=== PATIENT | male | born 1970 | race Caucasian/White ===

== ENCOUNTER 2017-02-16 19:55 | Emergency (ER) | payer SELFPAY ==
[2017-02-16] MEDS ORDERED: ACETAMINOPHEN 325 MG TABLET PO ONE (20:53)
[2017-02-16] MEDS ORDERED: BENZONATATE 100 MG CAPSULE PO ONE (23:40)
[2017-02-16] MEDS ORDERED: DOXYCYCLINE HYCLATE 100 MG TABLET PO ONE (23:40)
--- NOTE | 2017-02-16 23:41 | ER Document Report ---
ED Flu Like - General Chief Complaint: Fever, cough, weak, Throat Stated Complaint: FEVER/WEAKNESS Time Seen by Provider: 02/16/17 23:29 Notes: Patient is a 46-year-old male without past medical history, current every day smoker who presents with 2 days of fever, cough with production of phlegm and generalized weakness. Denies any history of similar symptoms in the past. States she's been trying [id number] medications with minimal improvement of his symptoms. He does not have a primary care doctor. Denies any associated shortness of breath, headache, neck pain, vomiting, diarrhea or abdominal pain. He does complain of back and lower rib pain which he states is secondary to him having severe coughing spells. Does describe that pain as a mild, aching, dull pain. TRAVEL OUTSIDE OF THE [place] IN LAST 30 DAYS: No - Related Data Allergies/Adverse Reactions: No Known Allergies Allergy (Unverified 05/29/12 11:34) Past Medical History - General Information source: Patient - Social History Smoking Status: Current Every Day Smoker Frequency of alcohol use: None Drug Abuse: None Lives with: Spouse/Significant other Family History: Reviewed & Not Pertinent Renal/ Medical History: Denies: Hx Peritoneal Dialysis Musculoskeltal Medical History: Reports Hx Gout, Reports Hx Musculoskeletal Trauma Past Surgical History: Reports: Hx Orthopedic Surgery Review of Systems - Review of Systems Notes: Constitutional: Positive for fever. HENT: Negative for sore throat. Eyes: Negative for visual changes. Cardiovascular: Negative for chest pain. Respiratory: Negative for shortness of breath. Positive for cough Gastrointestinal: Negative for abdominal pain, vomiting or diarrhea. Genitourinary: Negative for dysuria. Musculoskeletal: Negative for back pain. Skin: Negative for rash. Neurological: Negative for headaches, weakness or numbness. 10 point ROS negative except as marked above and in HPI. Physical Exam - Vital signs Vitals: Temp Pulse Resp BP Pulse Ox 102.2 F H 91 18 151/90 H 97 02/16/17 20:50 02/16/17 20:50 02/16/17 20:50 02/16/17 20:50 02/16/17 20:50 Interpretation: Hypertensive, Febrile Notes: PHYSICAL EXAMINATION: GENERAL: Well-appearing, well-nourished and in no acute distress. HEAD: Atraumatic, normocephalic. EYES: Pupils equal round and reactive to light, extraocular movements intact, sclera anicteric, conjunctiva are normal. ENT: nares patent, oropharynx clear without exudates. Moderately dry mucous membranes. NECK: Normal range of motion, supple without lymphadenopathy LUNGS: Mildly diminished breath sounds at the right base. No wheezes rales or rhonchi. HEART: Regular rate and rhythm without murmurs ABDOMEN: Soft, nontender, normoactive bowel sounds. No guarding, no rebound. No masses appreciated. EXTREMITIES: Normal range of motion, no pitting or edema. No cyanosis. NEUROLOGICAL: No focal neurological deficits. Moves all extremities spontaneously and on command. PSYCH: Normal mood, normal affect. SKIN: Warm, Dry, normal turgor, no rashes or lesions noted. Course - Re-evaluation Re-evalutation: 02/16/17 23:40 Presentation is most consistent with a viral upper respiratory infection. Patient is overall well appearance, vitals within normal limits with the exception of a fever, well-hydrated. Patient denies any headache, neck pain, and has no evidence of meningismus on examination. No evidence of respiratory distress. Based on clinical exam and history I do not suspect meningitis, strep pharyngitis, or an acute encephalitis. However, he diminished at the right base and given his history of a true fever recorded here in the emergency department will obtain a chest x-ray. Will treat patient with doxycycline given this exam finding and his recorded fever. At this time will discharge with return precautions and follow-up recommendations. Verbal discharge instructions given a the bedside and opportunity for questions given. Medication warnings reviewed. Patient is in agreement with this plan and has verbalized understanding of return precautions and the need for primary care follow-up in the next 24-72 hours. - Vital Signs Vital signs: Temp Pulse Resp BP Pulse Ox 99.1 F 77 18 152/93 H 94 02/17/17 01:00 02/17/17 01:00 02/17/17 01:00 02/17/17 01:00 02/17/17 01:00 - Diagnostic Test Radiology reviewed: Image reviewed, Reports reviewed Radiology results interpreted by me: 02/17/17 00:51 Chest x-ray: Hazy opacity above the level of the diaphragm on the right lower Discharge - Discharge Clinical Impression: Pneumonia Qualifiers: Pneumonia type: due to unspecified organism Laterality: right Lung location: lower lobe of lung Qualified Code(s): J18.1 - Lobar pneumonia, unspecified organism Condition: Good Disposition: HOME, SELF-CARE Additional Instructions: You have been diagnosed with a pneumonia. It is very important that you take all of your antibiotics until they are gone even if you are feeling better. Please return to the emergency department immediately if you began having worsening shortness of breath, become confused, have worsening pain, pass out, have persistent vomiting that prevents you from being able to drink fluids for more than 12 hours, or have any other symptoms that are worrisome to you. Please follow-up with your primary care doctor in the next 1-2 days. Prescriptions: Doxycycline Hyclate 100 mg PO BID #14 capsule
[2017-02-17 01:52] VITALS: BP 152/93
== END 2017-02-17 01:05 | disposition home or self-care (01) ==
LOC: ER 19:55
DX: J18.1 Lobar pneumonia, unspecified organism (principal); R50.9 Fever, unspecified; R53.1 Weakness; F17.200 Nicotine dependence, unspecified, uncomplicated
CPT/HCPCS: 71010; 99283

== ENCOUNTER 2017-12-16 10:49 | Emergency (ER) | payer SELFPAY ==
--- NOTE | 2017-12-16 11:54 | ER Document Report ---
ED Extremity Problem, Lower - General Chief Complaint: Ankle Pain Stated Complaint: ANKLE PAIN Time Seen by Provider: 12/16/17 11:41 Notes: Patient is a 47-year-old male with history of gout and hypertension complaining of pain to his posterior left ankle 3 days. The area is swollen. Painful with foot flexion. Patient has a history of gout but this pain is not familiar. Patient denies any trauma to the area. No fever. No chest pain or shortness of breath TRAVEL OUTSIDE OF THE [place] IN LAST 30 DAYS: No - HPI Patient complains to provider of: Pain Location: Ankle Occurred: Other - 3 days Quality of pain: Achy Recent injury: No Exacerbated by: Walking Relieved by: Nothing - Related Data Allergies/Adverse Reactions: No Known Allergies Allergy (Verified 12/16/17 10:51) Past Medical History - General Information source: Patient - Social History Smoking Status: Current Every Day Smoker Frequency of alcohol use: None Drug Abuse: None Occupation: Operations Coordinator Lives with: Family Family History: Reviewed & Not Pertinent Renal/ Medical History: Denies: Hx Peritoneal Dialysis Musculoskeltal Medical History: Reports Hx Gout, Reports Hx Musculoskeletal Trauma Past Surgical History: Reports: Hx Orthopedic Surgery Review of Systems - Review of Systems Constitutional: No symptoms reported EENT: No symptoms reported Cardiovascular: No symptoms reported Respiratory: No symptoms reported Gastrointestinal: No symptoms reported Genitourinary: No symptoms reported Male Genitourinary: No symptoms reported Musculoskeletal: See HPI Skin: No symptoms reported Hematologic/Lymphatic: No symptoms reported Neurological/Psychological: No symptoms reported Physical Exam - Vital signs Vitals: Temp Pulse Resp BP Pulse Ox 97.8 F 77 16 166/107 H 97 12/16/17 11:12 12/16/17 11:12 12/16/17 11:12 12/16/17 11:12 12/16/17 11:12 Interpretation: Normal - General General appearance: Appears well, Alert - HEENT Head: Normocephalic, Atraumatic Eyes: Normal Pupils: PERRL - Respiratory Respiratory status: No respiratory distress Chest status: Nontender Breath sounds: Normal Chest palpation: Normal - Cardiovascular Rhythm: Regular Heart sounds: Normal auscultation Murmur: No - Abdominal Inspection: Normal Distension: No distension Bowel sounds: Normal Tenderness: Nontender Organomegaly: No organomegaly - Back Back: Normal, Nontender - Extremities General upper extremity: Normal inspection, Nontender, Normal color, Normal ROM , Normal temperature Ankle: Tender - Tenderness at the insertion of the left Achilles tendon just above posterior calcaneus. Mild soft tissue swelling in this area. No erythema or warmth. No tenderness to malleolus or calcaneus. Able to flex foot without any difficulty. Foot: Normal - Left foot is warm to touch. Strong pedal pulse. - Neurological Neuro grossly intact: Yes Cognition: Normal Orientation: AAOx4 Diana Coma Scale Eye Opening: Spontaneous [place] Coma Scale Verbal: Oriented [place] Coma Scale Motor: Obeys Commands Diana Coma Scale Total: 15 Speech: Normal Motor strength normal: LUE, RUE, LLE, RLE Sensory: Normal - Psychological Associated symptoms: Normal affect, Normal mood - Skin Skin Temperature: Warm Skin Moisture: Dry Skin Color: Normal Course - Re-evaluation Re-evalutation: 12/16/17 20:38 History and physical most consistent with a tendinopathy. No vascular compromise. Low suspicion for tendon rupture. Will treat with course of oral steroids for inflammation. Home care, primary or orthopedic follow-up and return ED precautions discussed with patient. Patient agreeable with plan and stable with discharge Patient's blood pressure noted to be elevated. Patient is aware and reports that his blood pressure is usually elevated when he comes to the doctor. He also reports increased stress due to his mother being recently hospitalized. I discussed lifestyle modifications such as smoking cessation, limiting caffeine and sodium intake and weight loss. Patient is asymptomatic with this hypertension. I encouraged patient to keep a blood pressure diary and to follow -up with his primary care for further evaluation if his blood pressure remains consistently elevated greater than 140/90 - Vital Signs Vital signs: Temp Pulse Resp BP Pulse Ox 97.6 F 73 18 157/103 H 98 12/16/17 12:06 12/16/17 12:06 12/16/17 12:06 12/16/17 12:06 12/16/17 12:06 Discharge - Discharge Clinical Impression: Acute right ankle pain, Right Achilles tendinitis, Elevated blood pressure reading Condition: Stable Disposition: HOME, SELF-CARE Instructions: Ice & Elevation ([facility]), Steroid Medication, Tendonitis ([facility]), Ultram ([facility]) Additional Instructions: Your pain is most likely caused from inflammation around the Achilles tendon Take the prescription steroid medication as prescribed to help with this inflammation Take the prescription pain medication as needed for more severe pain I recommend an Ezekiel wrap or some type of ankle compression for support and comfort Ice and elevate the ankle and possible Your blood pressure is noted to be elevated today I recommend you keep a blood pressure diary and follow-up with your primary care if the readings remain elevated I recommend lifestyle modifications to help with blood pressure control such as stop smoking, decrease your caffeine intake and limit your sodium intake to less than 2000 mg per day Prescriptions: Prednisone [Deltasone 10 mg Tablet] 20 mg PO BID #20 tablet Tramadol HCl [Ultram 50 mg Tablet] 50 mg PO ASDIR PRN #20 tablet PRN Reason: Forms: Elevated Blood Pressure
[2017-12-16 12:10] VITALS: BP 157/103
== END 2017-12-16 12:09 | disposition home or self-care (01) ==
LOC: ER 10:49
DX: M25.572 Pain in left ankle and joints of left foot (principal); M76.61 Achilles tendinitis, right leg; R03.0 Elevated blood-pressure reading, without diagnosis of hypertension; F17.200 Nicotine dependence, unspecified, uncomplicated
CPT/HCPCS: 99283

== ENCOUNTER 2018-06-29 17:16 | Emergency (ER) | payer SELFPAY ==
[2018-06-29] MEDS ORDERED: ACETAMINOPHEN 325 MG TABLET PO ONE (17:39)
[2018-06-29] MEDS ORDERED: PREDNISONE 20 MG TABLET PO ONE (17:39)
[2018-06-29] MEDS ORDERED: CLONIDINE HCL 0.1 MG TABLET PO ONE (17:45)
--- NOTE | 2018-06-29 17:48 | ER Document Report ---
HPI - HPI Patient complains to provider of: Gout flare Onset: Yesterday Onset/Duration: Gradual Quality of pain: Achy Pain Level: 3 Context: Patient presents complaining of left great toe pain. Patient states he has a history of gout and suspects the same. Patient denies any injury. Patient denies any fever. Patient does present with elevated blood pressure. Patient states that he has been told on multiple occasions that he had a high blood pressure although patient does not see a primary doctor and does not take medications. Patient denies any headache chest pain back pain or visual disturbances at this time. Associated Symptoms: Other - Left great toe pain. denies: Headache Exacerbated by: Standing, Movement, Walking Relieved by: Denies Similar symptoms previously: Yes Recently seen / treated by doctor: No - ROS ROS below otherwise negative: Yes Systems Reviewed and Negative: Yes All other systems reviewed and negative - CONSTITUTIONAL Constitutional: DENIES: Fever - NEURO Neurology: DENIES: Headache - CARDIOVASCULAR Cardiovascular: DENIES: Chest pain - RESPIRATORY Respiratory: DENIES: Trouble Breathing, Coughing - GASTROINTESTINAL Gastrointestinal: DENIES: Abdominal Pain - MUSCULOSKELETAL Musculoskeletal: REPORTS: Extremity pain - Left great toe. DENIES: Back Pain - DERM Skin Color: Normal Skin Problems: None Past Medical History - General Information source: Patient - Social History Smoking Status: Current Every Day Smoker Smoking Education Provided: Yes Frequency of alcohol use: None Drug Abuse: None Occupation: sprinkler truck driver Lives with: Family Family History: Reviewed & Not Pertinent - Past Medical History Cardiac Medical History: Reports: Hx Hypertension Renal/ Medical History: Denies: Hx Peritoneal Dialysis Musculoskeletal Medical History: Reports Hx Gout, Reports Hx Musculoskeletal Trauma Past Surgical History: Reports: Hx Orthopedic Surgery Vertical Provider Document - CONSTITUTIONAL Agree With Documented VS: Yes Exam Limitations: No Limitations General Appearance: WD/WN, No Apparent Distress - INFECTION CONTROL TRAVEL OUTSIDE OF THE [place] IN LAST 30 DAYS: No - HEENT HEENT: Atraumatic, Normocephalic - NECK Neck: Normal Inspection, Supple. negative: Lymphadenopathy-Left, Lymphadenopathy-Right - RESPIRATORY Respiratory: Breath Sounds Normal, No Respiratory Distress - CARDIOVASCULAR Cardiovascular: Regular Rate, Regular Rhythm, No Murmur - BACK Back: Normal Inspection - MUSCULOSKELETAL/EXTREMETIES Musculoskeletal/Extremeties: MAEW, Tender - left great toe tenderness, swelling , Edema - NEURO Level of Consciousness: Awake, Alert, Appropriate Motor/Sensory: No Motor Deficit - DERM Integumentary: Warm, Dry, No Rash Course - Re-evaluation Re-evalutation: 06/29/18 18:37 Patient advised of elevated creatinine test and importance of monitoring as well as treating his hypertension. Patient encouraged to follow-up with a primary doctor for further management of both his gout and his hypertension. Patient without any objective fever, no concern for cellulitis, septic arthritis or trauma at this time. - Laboratory Result Diagrams: 06/29/18 17:50 Discharge - Discharge Clinical Impression: Abnormal renal function test Gout Qualifiers: Gout site: toe Gout etiology: unspecified cause Chronicity: acute Laterality: left Qualified Code(s): M10.9 - Gout, unspecified Hypertension Qualifiers: Hypertension type: unspecified Qualified Code(s): I10 - Essential (primary) hypertension Condition: Stable Disposition: HOME, SELF-CARE Instructions: Gout ([facility]), Gout Diet ([facility]), High Blood Pressure, Requiring Treatment ([facility]) Additional Instructions: Return immediately for any new or worsening symptoms Followup with your primary care provider, call tomorrow to make a followup appointment Monitor blood pressure daily prior to taking your medication, keep a log and present to primary doctor for further management Prescriptions: Lisinopril 10 mg PO DAILY #30 tablet Oxycodone HCl/Acetaminophen [Percocet 5-325 mg Tablet] 1 tab PO ASDIR PRN #15 tablet PRN Reason: Prednisone [Deltasone 20 mg Tablet] 2 tab PO DAILY 5 Days tablet Forms: Smoking Cessation Education, Return to Work Referrals: [facility] [Provider Group] - Follow up as needed [facility] [Provider Group] - Follow up as needed
[2018-06-29 18:10] LABS: ANION GAP 9 (5-19); BLOOD UREA NITROGEN 13 mg/dL (7-20); CALCIUM 9.6 mg/dL (8.4-10.2); CARBON DIOXIDE 25 mmol/L (22-30); CHLORIDE 107 mmol/L (98-107); GLUCOSE 95 mg/dL (75-110); POTASSIUM 4.1 mmol/L (3.6-5.0); SODIUM 140.7 mmol/L (137-145)
[2018-06-29 18:37] VITALS: BP 177/110
== END 2018-06-29 18:40 | disposition home or self-care (01) ==
LOC: ER 17:16
DX: M10.9 Gout, unspecified (principal); R94.4 Abnormal results of kidney function studies; M79.675 Pain in left toe(s); I10 Essential (primary) hypertension; F17.200 Nicotine dependence, unspecified, uncomplicated
CPT/HCPCS: 99283; 36415; 80048; J7512

== ENCOUNTER 2019-04-01 14:44 | Emergency (ER) | payer OTHER ==
[2019-04-01 14:49] VITALS: BP 166/113
--- NOTE | 2019-04-01 17:43 | RADIOLOGY REPORT (SQ) ---
EXAM DESCRIPTION: ELBOW RIGHT OVER 2 VIEWS COMPLETED DATE/TIME: 04/01/2019 5:31 pm REASON FOR STUDY: eval for joint effusion COMPARISON: None. NUMBER OF VIEWS: Four views. TECHNIQUE: AP, lateral, and both oblique radiographic images acquired of the right elbow. LIMITATIONS: None. FINDINGS: MINERALIZATION: Normal. BONES: No acute fracture or dislocation. No worrisome bone lesions. JOINT: No effusion. SOFT TISSUES: No soft tissue swelling. No foreign body. OTHER: No other significant finding. IMPRESSION: NEGATIVE STUDY OF THE RIGHT ELBOW. NO RADIOGRAPHIC EVIDENCE OF ACUTE INJURY. TECHNICAL DOCUMENTATION: JOB ID: [id number] [employer]- All Rights Reserved Reading location - IP/workstation name: [email or web address]
[2019-04-01] MEDS ORDERED: COLCHICINE 0.6 MG TABLET PO ONE ×2 (18:04)
--- NOTE | 2019-04-01 18:09 | ER Document Report ---
HPI - HPI Time Seen by Provider: 04/01/19 16:21 Pain Level: 3 Notes: Patient is a 49-year-old male presenting to the emergency department with chief complaint of right elbow pain. Patient denies any history of trauma to the area, states the pain started yesterday. Patient does report a history of gout but states he has only had this in his toes. Patient reports pain with movement of the arm and slight warm feeling to the area. - CONSTITUTIONAL Constitutional: DENIES: Fever, Chills - NEURO Neurology: REPORTS: Weakness - right arm Past Medical History - General Information source: Patient - Social History Smoking Status: Former Smoker Frequency of alcohol use: None Drug Abuse: None Family History: Reviewed & Not Pertinent Patient has suicidal ideation: No Patient has homicidal ideation: No - Past Medical History Cardiac Medical History: Reports: Hx Hypertension Renal/ Medical History: Denies: Hx Peritoneal Dialysis Musculoskeletal Medical History: Reports Hx Gout, Reports Hx Musculoskeletal Trauma Past Surgical History: Reports: Hx Orthopedic Surgery Vertical Provider Document - CONSTITUTIONAL Notes: PHYSICAL EXAMINATION: GENERAL: Well-appearing, well-nourished and in no acute distress. HEAD: Atraumatic, normocephalic. EYES: Pupils equal round extraocular movements intact, conjunctiva are normal. ENT: Nares patent NECK: Normal range of motion LUNGS: No respiratory distress Musculoskeletal: Normal range of motion to right elbow, pain with range of motion, mild erythema with mild swelling. NEUROLOGICAL: Normal speech, normal gait. PSYCH: Normal mood, normal affect. SKIN: Warm, Dry, normal turgor, no rashes or lesions noted. - INFECTION CONTROL TRAVEL OUTSIDE OF THE [place] IN LAST 30 DAYS: No Course - Re-evaluation Re-evalutation: X-ray was obtained, no fracture dislocation at the elbow. Patient reports pain feels similar to his gout flareup. Patient will be given a dose of colchicine here in the emergency department, given a dose to take in 1 hour and will be encouraged to take ibuprofen over the next several days. Gout diet was discussed with patient. Patient encouraged to return to the emergency department with any new or worsening symptoms. Patient verbalized understanding and agreement with this plan. - Vital Signs Vital signs: Temp Pulse Resp BP Pulse Ox 98.4 F 88 16 166/113 H 95 04/01/19 14:48 04/01/19 14:48 04/01/19 14:48 04/01/19 14:48 04/01/19 14:48 Discharge - Discharge Clinical Impression: Gout of right elbow Qualifiers: Gout etiology: unspecified cause Chronicity: acute Qualified Code(s): M10.9 - Gout, unspecified Condition: Stable Disposition: HOME, SELF-CARE Additional Instructions: Gout You have been diagnosed as having gout. Gout is a problem caused by an excess of uric acid, a natural chemical found in the body. The cause of this disease is unknown. Gout arthritis occurs when crystals of uric acid form in the joints. The big toe is the most common joint involved, but any joint can become affected including the elbow. Persons with gout may also form uric acid kidney stones, resulting in flank pain and blood in the urine. Nodules of uric acid may form under the skin. The first step of treatment is to decrease the inflammation in the joint with antiinflammatory medication. Medication to lower the uric acid level in the blood may then be prescribed. This medication should be taken regularly, as any sudden change in dosage may provoke an attack of gout. Some foods, such as red meat, can provoke an attack in some gout sufferers. Call the doctor if new symptoms arise, or if you do not improve. Gout Diet Changing your diet can decrease the uric acid in your blood. High levels of uric acid cause gouty arthritis and uric acid kidney stones. If you have gout, you should avoid meats that are high in purine. Meat products to avoid include liver, kidneys, and brains. In general, poultry is better than red meats. Seafoods to avoid include anchovies, sardines, montero, mackerel, and scallops. In addition to limiting purine-rich foods, people with gout should limit protein intake to 10-15% of total calories. Carbohydrate intake should be around 50% of total daily calories. Limit fat intake to 30% of total daily calories. Cholesterol intake should be less than 300 mg/day. Maintain or achieve a healthy body weight. Weight loss should be gradual. Rapid weight loss can actually increase uric acid levels temporarily. Alcohol, especially beer, should be avoided. Get plenty of fluids. This dilutes urinary uric acid, and helps prevent u lion acid kidney stones. Drink eight to twelve cups of water daily. Take the dose of colchicine at that I am sending home with you 1 hour after you are discharged. You should also take ibuprofen 600 mg every 6 hours. Try to watch your diet as outlined above. Follow-up with your primary care provider next week if not improving. Forms: Return to Work
== END 2019-04-01 18:25 | disposition home or self-care (01) ==
LOC: ER 14:44
DX: M10.9 Gout, unspecified (principal); M25.521 Pain in right elbow; R53.1 Weakness; I10 Essential (primary) hypertension
CPT/HCPCS: 99283

== ENCOUNTER 2020-08-01 06:54 | Emergency (ER) | payer OTHER ==
[2020-08-01] MEDS ORDERED: ONDANSETRON HCL INJ/PF 4 MG/2 ML SDV IV ONE (07:55)
[2020-08-01] MEDS ORDERED: KETOROLAC TROMETHAMINE INJ/PF 30 MG/1 ML SDV IV ONE (07:55)
[2020-08-01] MEDS ORDERED: HYDROMORPHONE HCL INJ/PF 2 MG/ML AMPULE IV ONE (07:55)
--- NOTE | 2020-08-01 07:58 | ER Document Report ---
ED General - General Stated Complaint: ABDOMINAL PAIN VOMITTING TROUBLE URINATING Time Seen by Provider: 08/01/20 07:31 Primary Care Provider: ELEN REARDON MD [NO LOCAL MD] - Follow up in 1 week Notes: With right lower quadrant abdominal pain woke him up from sleep at 3 AM with nausea and vomiting. Not changing on movement and cannot get comfortable. Urine is coming out little at a time but not bloody. No fever chills upper abdominal pain, no prior dental surgeries. Does not drink heavily. Does smoke. No radiation to back not ripping or tearing not maximal in onset. TRAVEL OUTSIDE OF THE [place] IN LAST 30 DAYS: No - Related Data Allergies/Adverse Reactions: No Known Allergies Allergy (Verified 04/01/19 14:49) Past Medical History - General Information source: Patient - Social History Smoking Status: Current Every Day Smoker Smoking Education Provided: Yes - The patient ED visit today was directly related to their abuse of tobacco. Family History: Reviewed & Not Pertinent - Past Medical History Cardiac Medical History: Reports: Hx Hypertension Renal/ Medical History: Denies: Hx Peritoneal Dialysis Musculoskeletal Medical History: Reports Hx Gout, Reports Hx Musculoskeletal Trauma Past Surgical History: Reports: Hx Orthopedic Surgery Review of Systems - Review of Systems Notes: REVIEW OF SYSTEMS GEN: Denies fever, chills, weight loss ENT: Denies sore throat, nasal discharge, ear pain EYES: Denies blurry vision, eye pain, discharge CV: Denies chest pain, palpitations, edema RESP: Denies cough, shortness of breath, wheezing GI: Lower abdominal pain nausea vomiting g, diarrhea MSK: Denies joint pain/swelling, edema, SKIN: Denies rash, skin lesions LYMPH: Denies swollen glands/lymph nodes NEURO: Denies headache, focal weakness or numbness, dizziness PSYCH: Denies depression, suicidal or homicidal ideation PHYSICAL EXAMINATION General: Appears uncomfortable Head: Atraumatic, normocephalic ENT: Mouth normal, oropharynx moist, no exudates or tonsillar enlargement Eyes: Conjunctiva normal, pupils equal, lids normal Neck: No JVD, supple, no guarding CVS: Normal rate, regular rhythm, no murmurs Resp: No resp distress, equal and normal breath sounds bilaterally GI: Nondistended, soft, no tenderness to palpation, no rebound or guarding Ext: No deformities, no edema, normal range of motion in upper and lower ext Back: No CVA or midline TTP Skin: No rash, warm Lymphatic: No lymphadeopathy noted Neuro: Awake, alert. Face symmetric. GCS 15. Physical Exam - Vital signs Vitals: Temp Pulse Resp BP Pulse Ox 97.4 F 64 19 162/98 H 98 08/01/20 07:04 08/01/20 07:04 08/01/20 07:04 08/01/20 07:04 08/01/20 07:04 Course - Re-evaluation Re-evalutation: 08/01/20 07:57 Right flank and lower abdominal pain without tenderness and with nausea vomiting most concerning for kidney stone/infection. Will do Noncon CT then consider gallbladder appendectomy etc. with labs Dilaudid Zofran and Toradol given. 08/01/20 15:15 CT confirmed stone minimal hydro no infection Better after pain medication single dose did not require second dose of fentany l. Discharge home on typical cocktail of medications for stone passage pain control nausea control Refer to urology I have discussed with the patient there likely diagnosis, aftercare plan, follow-up plans and my usual and customary return precautions. They verbalized understanding of this. - Vital Signs Vital signs: Temp Pulse Resp BP Pulse Ox 97.2 F 60 14 164/90 H 100 08/01/20 11:24 08/01/20 11:24 08/01/20 11:24 08/01/20 11:24 08/01/20 11:24 - Laboratory Result Diagrams: 08/01/20 09:00 08/01/20 09:00 Laboratory results interpreted by me: 08/01/20 08/01/20 08/01/20 08:00 09:00 09:00 Lymph % (Auto) 10.0 L Seg Neutrophils % 85.6 H Creatinine 1.34 H Est GFR (MDRD) Non-Af 57 L Glucose 121 H Urine Protein 30 H Urine Blood SMALL H - Diagnostic Test Radiology reviewed: Image reviewed, Reports reviewed Discharge - Discharge Clinical Impression: Renal colic on right side Condition: Good Disposition: HOME, SELF-CARE Instructions: Kidney Stone ([facility]) Prescriptions: Tamsulosin HCl [Flomax] 0.4 mg PO QHS #7 cap.er.24h Ondansetron [Zofran Odt 4 mg Tablet] 1 - 2 tab PO Q4HP PRN #10 tab.rapdis PRN Reason: Ibuprofen [Motrin 600 mg Tablet] 600 mg PO Q8HP PRN #90 tablet PRN Reason: Oxycodone HCl [Oxycontin Ir 5 Mg Tablet] 1 - 2 mg PO Q4H PRN #15 tablet PRN Reason: For Pain Forms: Return to Work Referrals: ELEN REARDON MD [NO LOCAL MD] - Follow up in 1 week
[2020-08-01 08:26] LABS: APPEARANCE,URINE CLEAR; BILIRUBIN,URINE NEGATIVE (NEGATIVE); COLOR,URINE YELLOW; GLUCOSE, URINE NEGATIVE (NEGATIVE); KETONES,URINE NEGATIVE (NEGATIVE); LEUKOCYTE ESTERASE,URINE NEGATIVE (NEGATIVE); NITRITE,URINE NEGATIVE (NEGATIVE); PROTEIN,URINE 30 mg/dL (NEGATIVE); URINE SPECIFIC GRAVITY 1.018; UROBILINOGEN,URINE NEGATIVE mg/dL (<2.0)
--- NOTE | 2020-08-01 08:37 | RADIOLOGY REPORT (SQ) ---
EXAM DESCRIPTION: CT ABD/PELVIS NO ORAL OR IV IMAGES COMPLETED DATE/TIME: 08/01/2020 8:24 am REASON FOR STUDY: R stone?? COMPARISON: None. TECHNIQUE: CT scan of the abdomen and pelvis performed without intravenous or oral contrast. Images reviewed with lung, soft tissue, and bone windows. Reconstructed coronal and sagittal MPR images revi ewed. All images stored on PACS. All CT scanners at this facility use dose modulation, iterative reconstruction, and/or weight based d osing when appropriate to reduce radiation dose to as low as reasonably achievable (ALARA). [facility]: Dose Right [facility]: CareDose [facility]: Dose Right [facility]: Teradose 4D [facility]: Smart OPE [employer] RADIATION DOSE: CT Rad equipment meets quality standard of care and radiation dose reduction techniq ues were employed. CTDIvol: 16.7 mGy. DLP: 1028 mGy-cm.mGy. LIMITATIONS: None. FINDINGS: LOWER CHEST: No significant findings. No nodules or infiltrates. NON-CONTRASTED LIVER, SPLEEN, ADRENALS: Evaluation limited by lack of IV contrast. No identified sign ificant masses. PANCREAS: No masses. No peripancreatic inflammatory changes. GALLBLADDER: No identified stones by CT criteria. No inflammatory changes to suggest cholecystitis. RIGHT KIDNEY AND URETER: No suspicious masses. Assessment limited by lack of IV contrast. There is a 2.4 mm distal right ureteral stone. Very mild dilatation of the right collecting system. No charo nephric stranding. LEFT KIDNEY AND URETER: No suspicious masses. Assessment limited by lack of IV contrast. No signifi cant calcifications. No hydronephrosis or hydroureter. AORTA AND RETROPERITONEUM: No aneurysm. No retroperitoneal masses or adenopathy. BOWEL AND PERITONEAL CAVITY: No obvious masses or inflammatory changes. No free fluid. APPENDIX: Normal. PELVIS, BLADDER, AND ABDOMINAL WALL:No abnormal masses. No free fluid. Bladder normal. BONES: No significant findings. OTHER: No other significant finding. IMPRESSION: 2.4 mm right distal ureteral stone. This stone lies just proximal to the UVJ. Very mil d dilatation of the right collecting system. COMMENT: Quality ID # [id number]: Final reports with documentation of one or more dose reduction techniques (e.g., Automated exposure control, adjustment of the mA and/or kV according to patient size, use of iterative reconstruction technique) TECHNICAL DOCUMENTATION: JOB ID: [id number] [employer]- All Rights Reserved Reading location - IP/workstation name: [email or web address]
[2020-08-01] MEDS ORDERED: FENTANYL CITRATE INJ/PF 100 MCG/2 ML AMPUL IV ONE (08:40)
[2020-08-01 09:48] LABS: ABSOLUTE MONOCYTES (AUTO) 0.4 10^3/uL (0.1-1.4); ABSOLUTE NEUT (AUTO) 8.2 10^3/uL (1.7-8.2); BASOPHILS % (AUTO) 0.4 % (0-2); EOSINOPHILS % (AUTO) 0.2 % (0-6); HEMATOCRIT 41.7 % (37.9-51.0); HEMOGLOBIN 14.4 g/dL (13.5-17.0); MEAN CORPUSCULAR HEMOGLOBIN 31.4 pg (27.0-33.4); MEAN CORPUSCULAR HGB CONC 34.6 g/dL (32.0-36.0); MEAN CORPUSCULAR VOLUME 91 fl (80-97); MONOCYTES % (AUTO) 3.8 % (3-13); PLATELET COUNT 272 10^3/uL (150-450); RED CELL DISTRIBUTION WIDTH 12.9 % (11.5-14.0); SEGMENTED NEUTROPHILS % (AUTO) 85.6 % (42-78); TOTAL CELLS COUNTED % (AUTO) 100 %; WHITE BLOOD COUNT 9.6 10^3/uL (4.0-10.5)
[2020-08-01 09:58] LABS: ALBUMIN 4.6 g/dL (3.5-5.0); ALKALINE PHOSPHATASE 81 U/L (38-126); ANION GAP 12 (5-19); ASPARTATE AMINO TRANSFERASE 25 U/L (17-59); BILIRUBIN,DIRECT 0.1 mg/dL (0.0-0.4); BILIRUBIN,TOTAL 0.6 mg/dL (0.2-1.3); BLOOD UREA NITROGEN 16 mg/dL (7-20); CALCIUM 9.8 mg/dL (8.4-10.2); CARBON DIOXIDE 23 mmol/L (22-30); CHLORIDE 105 mmol/L (98-107); GLUCOSE 121 mg/dL (75-110); TOTAL PROTEIN 7.7 g/dL (6.3-8.2)
[2020-08-01 11:25] VITALS: BP 164/90
== END 2020-08-01 11:23 | disposition home or self-care (01) ==
LOC: ER 06:54
DX: N20.0 Calculus of kidney (principal); R10.9 Unspecified abdominal pain; R11.2 Nausea with vomiting, unspecified; F17.200 Nicotine dependence, unspecified, uncomplicated; I10 Essential (primary) hypertension
CPT/HCPCS: 99285; 96374; 96375; 36415; 83690; 85025; 80076; 80048; 81001; 74176; J1885; J1170; J2405